=== PATIENT | female | born 1935 | race Caucasian/White ===

== ENCOUNTER 2020-05-24 12:38 | Emergency (ER) | payer MEDICARE ==
--- NOTE | 2020-05-24 20:34 | CT ---
CT BRAIN WITHOUT CONTRAST: Date: 05-24-[address] of the brain was done after a fall. Comparison: None FINDINGS: No intracranial bleeding, mass, edema, or obvious acute stroke was found. The ventricles are normal i n size with no shift. A persistent cavum septum pellucidum was noted. There are several patchy low de nsity areas throughout the deep white matter suggestive of chronic ischemic change. The skull itself appears intact with no fracture. A small area of soft tissue swelling is seen over the right frontal area but the underlying bone appears normal. IMPRESSION: Chronic changes but no acute intracranial findings. Preliminary report called to Dr. Chatman at 1326 on 05-24-2020. POS: HOME
--- NOTE | 2020-05-24 20:39 | CT ---
CT CERVICAL SPINE: Date: 05-24-[address] of the cervical spine as done after a fall. FINDINGS: There is loss of the normal cervical lordosis which could be due to muscle spasm, or could be due to the patient's usual state. No fracture, dislocation, or acute bony change was seen. Disc space narrowing is present at C5-6 and C6-7 with degenerative changes prominent at these levels. The C1 to dens distance is normal and the s oft tissues are normal in thickness. Findings by level: C1-2: No acute findings. C2-3: No acute findings. C3-4: No acute findings. C4-5: Mild facet arthritis but no acute findings. C5-6: Severe bilateral foraminal narrowing due to osteophytes. AP diameter of the spinal canal at thi s level is about 10 mm. C6-7: Moderate bilateral foraminal narrowing due to osteophytes. C7-T1: No acute findings. T1-2: No acute findings. The lung apices are clear and show no pneumothorax. The surrounding soft tissues of the neck showed n o acute findings. IMPRESSION: Straightening of the cervical spine and degenerative change but no acute findings otherwise. Preliminary report called to Dr. Chatman at 1326 on 05-24-2020. POS: HOME
== END 2020-05-24 13:41 | disposition home or self-care (01) ==
LOC: BURERS 12:38
DX: S01.81XA Laceration without foreign body of other part of head, initial encounter (principal); M47.812 Spondylosis without myelopathy or radiculopathy, cervical region; E78.5 Hyperlipidemia, unspecified; I10 Essential (primary) hypertension; K21.9 Gastro-esophageal reflux disease without esophagitis; F17.210 Nicotine dependence, cigarettes, uncomplicated; Z79.82 Long term (current) use of aspirin; Z79.899 Other long term (current) drug therapy; W06.XXXA Fall from bed, initial encounter
CPT/HCPCS: 70450; 72125

== ENCOUNTER 2021-04-18 16:01 | Emergency (ER) | payer MEDICARE ==
[2021-04-18 17:35] LABS: #Basophils 0.1 thou/uL (0.0-0.2); #Monocytes 0.4 thou/uL (0.11-0.59); #Neutrophils 6.2 thou/uL (1.40-6.50); %Basophils 0.9 % (0.0-1.0); %Eosinophils 0.5 % (0.0-10.0); %Lymphocytes 13.4 % (21.0-51.0); %Monocytes 4.9 % (0.0-10.0); %Neutrophils 80.2 % (42.0-75.0); Hemoglobin 7.1 g/dL (12.0-16.0); Mean Corpuscular HGB CONC 29.2 g/dL (32.0-36.0); Mean Corpuscular Hemoglobin 21.8 pg (27.0-31.0); Mean Corpuscular Volume 74.7 fL (78.0-98.0); Mean Platelet Volume 7.6 fL (7.4-10.4); Platelet Count 262 thou/uL (130-400); RBC Distribution Width 15.4 % (11.5-14.5); Red Blood Cell (RBC) Count 3.27 mill/uL (4.20-5.40); White Blood Cell (WBC) Count 7.7 thou/uL (4.8-10.8)
[2021-04-18 17:48] LABS: ALT (SGPT) 11 U/L (8-55); AST (SGOT) 12 U/L (5-34); Albumin 3.3 g/dL (3.4-4.8); Alkaline Phosphatase 74 U/L (40-110); Anion Gap 12 mmol/L (10-20); BUN (Urea Nitrogen) 12 mg/dL (9.8-20.1); Bilirubin, Total 0.3 mg/dL (0.2-1.2); Calc. Creatinine Clearance 0 mL/min (70-130); Calcium 8.8 mg/dL (7.8-10.44); Carbon Dioxide 27 mmol/L (23-31); Chloride 101 mmol/L (98-107); Globulin 2.5 g/dL (2.4-3.5); Glucose 99 mg/dL (83-110); Potassium 4.1 mmol/L (3.5-5.1); Protein, Total 5.8 g/dL (5.8-8.1); Sodium 136 mmol/L (136-145)
[2021-04-18 18:32] LABS: Bilirubin Negative (Negative); Blood, Urine Negative (Negative); Clarity Clear (Clear); Glucose, Urine (Dipstick) Negative (Negative); Ketone, Urine Negative (Negative); Leukocyte Negative (Negative); Nitrite Negative (Negative); Protein, Urine (Dipstick) Negative (Neg-Trace); Urobilinogen 0.2 mg/dL (Less than 2)
[2021-04-18 18:34] LABS: Specific Gravity, Urine 1.005 (1.002-1.036)
[2021-04-18 19:26] LABS: Bite Cells SLIGHT = 2-5 cells (100X) (0-1/hpf); Elliptocytes SLIGHT = 2-5 cells (100X) (0-1/hpf); Hypochromia MODERATE=16-30 cells (100X) (0-5/hpf); MDiff Complete? YES; Microcytosis SLIGHT = 6-15 cells (100X) (0-5/hpf); Reflex for Review?? NO
== END 2021-04-18 23:42 | disposition home or self-care (01) ==
LOC: BURERS 16:01
DX: D64.9 Anemia, unspecified (principal); K21.9 Gastro-esophageal reflux disease without esophagitis; E78.5 Hyperlipidemia, unspecified; I10 Essential (primary) hypertension; F17.210 Nicotine dependence, cigarettes, uncomplicated; Z79.82 Long term (current) use of aspirin; Z79.899 Other long term (current) drug therapy
CPT/HCPCS: 36430; 51701; 80053; 81003; 85025; 86850; 86900; 86901; 86920; 93005; 99285; P9016; 36415

== ENCOUNTER 2021-07-12 09:43 | Emergency (ER) | payer MEDICARE ==
[2021-07-12] MEDS ORDERED: ALPRAZolam 0.5 MG TAB ONE (10:52)
[2021-07-12 11:17] LABS: Platelet Count 157 thou/uL (130-400); White Blood Cell (WBC) Count 14.2 thou/uL (4.8-10.8)
[2021-07-12 11:18] LABS: #Basophils 0.1 thou/uL (0.0-0.2); #Lymphocytes 0.4 thou/uL (1.20-3.40); #Monocytes 0.7 thou/uL (0.11-0.59); #Neutrophils 11.8 thou/uL (1.40-6.50); %Basophils 0.4 % (0.0-1.0); %Lymphocytes 3.3 % (21.0-51.0); %Monocytes 5.1 % (0.0-10.0); %Neutrophils 91.1 % (42.0-75.0); Hemoglobin 8.5 g/dL (12.0-16.0); Mean Corpuscular Hemoglobin 26.7 pg (27.0-31.0); Mean Corpuscular Volume 86.2 fL (78.0-98.0); Mean Platelet Volume 6.1 fL (7.4-10.4); RBC Distribution Width 17.4 % (11.5-14.5); Red Blood Cell (RBC) Count 3.18 mill/uL (4.20-5.40)
[2021-07-12 11:24] LABS: ALT (SGPT) 11 U/L (8-55); AST (SGOT) 17 U/L (5-34); Albumin 2.9 g/dL (3.4-4.8); Alkaline Phosphatase 69 U/L (40-110); Anion Gap 17 mmol/L (10-20); BUN (Urea Nitrogen) 9 mg/dL (9.8-20.1); Bilirubin, Total 0.3 mg/dL (0.2-1.2); CK (CPK) 16 U/L (29-168); Calc. Creatinine Clearance 0 mL/min (70-130); Calcium 8.4 mg/dL (7.8-10.44); Carbon Dioxide 24 mmol/L (23-31); Chloride 99 mmol/L (98-107); Globulin 2.8 g/dL (2.4-3.5); Glucose 97 mg/dL (83-110); Magnesium 1.7 mg/dL (1.6-2.6); Potassium 4.2 mmol/L (3.5-5.1); Protein, Total 5.7 g/dL (5.8-8.1); Sodium 136 mmol/L (136-145)
[2021-07-12 12:56] LABS: Bilirubin Small (Negative); Blood, Urine Negative (Negative); Clarity Clear (Clear); Glucose, Urine (Dipstick) Negative (Negative); Ketone, Urine 15 mg/dL (Negative); Leukocyte Negative (Negative); Nitrite Negative (Negative); Protein, Urine (Dipstick) Trace mg/dL (Neg-Trace); Specific Gravity, Urine 1.025 (1.005-1.030); Urobilinogen 0.2 mg/dL (Less than 2)
[2021-07-12] MEDS ORDERED: Midazolam HCl 5 mg/ml Vial ONE (15:03)
[2021-07-12] MEDS ORDERED: Acetaminophen 500 MG TAB ONE (16:05)
[2021-07-12] MEDS ORDERED: Levofloxacin 500 mg/D5W 100 ml Premix Bag ONE (16:06)
== END 2021-07-12 17:45 | disposition short-term general hospital (02) ==
LOC: BURERS 09:43
DX: K52.9 Noninfective gastroenteritis and colitis, unspecified (principal); D64.9 Anemia, unspecified; K21.9 Gastro-esophageal reflux disease without esophagitis; E78.5 Hyperlipidemia, unspecified; I10 Essential (primary) hypertension; F17.210 Nicotine dependence, cigarettes, uncomplicated; Z79.899 Other long term (current) drug therapy; Z79.82 Long term (current) use of aspirin
CPT/HCPCS: 36415; 36556; 71045; 74176; 80053; 81003; 82550; 83735; 83880; 84484; 85025; 86850; 86900; 86901; 93005; 94760; 96365; 96372; J1956; J2250

== ENCOUNTER 2021-08-20 09:14 | Emergency (ER) | payer MEDICARE ==
[2021-08-20 10:00] LABS: #Basophils 0.1 thou/uL (0.0-0.2); #Eosinphils 0.1 thou/uL (0.0-0.7); #Lymphocytes 1.1 thou/uL (1.20-3.40); #Monocytes 0.7 thou/uL (0.11-0.59); %Basophils 0.7 % (0.0-1.0); %Eosinophils 1.8 % (0.0-10.0); %Lymphocytes 13.5 % (21.0-51.0); %Monocytes 8.6 % (0.0-10.0); %Neutrophils 75.3 % (42.0-75.0); Hemoglobin 9.6 g/dL (12.0-16.0); Mean Corpuscular HGB CONC 30.9 g/dL (32.0-36.0); Mean Corpuscular Hemoglobin 27.5 pg (27.0-31.0); Mean Corpuscular Volume 88.9 fL (78.0-98.0); Mean Platelet Volume 7.1 fL (7.4-10.4); Platelet Count 213 thou/uL (130-400); RBC Distribution Width 15.5 % (11.5-14.5); Red Blood Cell (RBC) Count 3.49 mill/uL (4.20-5.40)
[2021-08-20 10:16] LABS: ALT (SGPT) Less than 7 U/L (8-55); AST (SGOT) 9 U/L (5-34); Albumin 3.1 g/dL (3.4-4.8); Alkaline Phosphatase 64 U/L (40-110); Anion Gap 15 mmol/L (10-20); BUN (Urea Nitrogen) 10 mg/dL (9.8-20.1); Bilirubin, Total 0.3 mg/dL (0.2-1.2); Calc. Creatinine Clearance 0 mL/min (70-130); Calcium 8.3 mg/dL (7.8-10.44); Carbon Dioxide 28 mmol/L (23-31); Chloride 96 mmol/L (98-107); Glucose 94 mg/dL (83-110); Lipase 4 U/L (8-78); Potassium 4.2 mmol/L (3.5-5.1); Protein, Total 6.1 g/dL (5.8-8.1); Sodium 135 mmol/L (136-145)
[2021-08-20] MEDS ORDERED: methylPREDNISolone Sod Succ/PF 125 MG/2 ML VIAL ONE (10:52)
[2021-08-20] MEDS ORDERED: Piperacillin/Tazobactam 4.5 GM VIAL ONE (10:52)
[2021-08-20] MEDS ORDERED: Sodium Chloride 0.9% 100 ML ONE (10:53)
== END 2021-08-20 17:00 | disposition short-term general hospital (02) ==
LOC: BURERS 09:14
DX: K52.9 Noninfective gastroenteritis and colitis, unspecified (principal); N13.30 Unspecified hydronephrosis; I10 Essential (primary) hypertension; K21.9 Gastro-esophageal reflux disease without esophagitis; E78.5 Hyperlipidemia, unspecified; F17.210 Nicotine dependence, cigarettes, uncomplicated; Z79.899 Other long term (current) drug therapy
CPT/HCPCS: 36415; 74176; 80053; 83605; 83690; 85025; 96365; 96366; 96375; J2543; J2930; J3490